=== PATIENT | male | born 1945 | race African-American/Black ===

== ENCOUNTER 2022-10-02 11:43 | Emergency (ER) | payer OTHER ==
[2022-10-02 11:56] VITALS: BP 153/86; PULSE 66; RESP 18; TEMP 98.1; BMI 28.7
[2022-10-02] MEDS ORDERED: LIDOCAINE 5% TOPICAL PATCH ONE (13:27)
[2022-10-02] MEDS ORDERED: ACETAMINOPHEN 500 MG TABLET (FP) ONE (13:27)
[2022-10-02] MEDS ORDERED: ACETAMINOPHEN 500 MG TABLET (FP) PO ONE (13:30)
[2022-10-02] MEDS ORDERED: LIDOCAINE 5% TOPICAL PATCH TP ONE (13:30)
[2022-10-02] MEDS ORDERED: LIDOCAINE PATCH REMOVAL MC SCH (22:00)
== END 2022-10-02 15:21 | disposition home or self-care (01) ==
LOC: JERFT 11:43
DX: M54.50 Low back pain, unspecified (principal); M79.604 Pain in right leg; M79.605 Pain in left leg; M16.11 Unilateral primary osteoarthritis, right hip; G47.00 Insomnia, unspecified
CPT/HCPCS: 72100-TC-FY; 72170-TC-FY; 99283-25

== ENCOUNTER 2022-10-17 05:11 | Day surgery (SDC) | payer OTHER ==
[2022-10-15 10:54] VITALS: BMI 28.7
[2022-10-17] MEDS ORDERED: BUPIVACAINE HCL/PF 0.5% (5MG/ML) 10 ML VIAL ONE (07:13)
[2022-10-17] MEDS ORDERED: LIDOCAINE HCL 1% PRESERVATIVE FREE - 30ML VIAL IJ ONE (11:22)
[2022-10-17] MEDS ORDERED: BUPIVACAINE HCL/PF 0.75% 10 ML VIAL NR ONE (11:23)
[2022-10-17 12:03] VITALS: BP 140/81; PULSE 70; RESP 16; TEMP 97.2
[2022-10-17] MEDS ORDERED: ACETAMINOPHEN 500 MG TABLET (FP) PO PRN (13:32)
== END 2022-10-17 14:52 | disposition home or self-care (01) ==
LOC: JASU-SURG 05:11
PROVIDERS: ATTEND Pain Medicine Pain Medicine
PROC: 3E0T3BZ Introduction of Anesthetic Agent into Peripheral Nerves and Plexi, Percutaneous Approach (ICD-10-PCS; principal; 2022-10-17 11:45)
DX: M47.816 Spondylosis without myelopathy or radiculopathy, lumbar region (principal)
CPT/HCPCS: 76000-TC-FY

== ENCOUNTER 2022-11-11 04:00 | Day surgery (SDC) | payer OTHER ==
[2022-11-10 11:41] VITALS: BMI 28.7
[2022-11-11] MEDS ORDERED: DEXAMETHASONE SOD PHOSPHATE 10 MG/1 ML VIAL ONE (07:25)
[2022-11-11] MEDS ORDERED: LIDOCAINE HCL/PF 1% SDV 5ML VIAL ONE (07:25)
[2022-11-11 10:43] VITALS: RESP 18
[2022-11-11] MEDS ORDERED: IOHEXOL 180 MG/1 ML ML IJ ONE (12:10)
[2022-11-11] MEDS ORDERED: DEXAMETHASONE SOD PHOSPHATE 10 MG/1 ML VIAL IVPUSH ONE (12:10)
[2022-11-11] MEDS ORDERED: LIDOCAINE HCL 1% PRESERVATIVE FREE - 30ML VIAL IJ ONE (12:10)
[2022-11-11 12:47] VITALS: PULSE 64
[2022-11-11] MEDS ORDERED: ACETAMINOPHEN 500 MG TABLET (FP) PO PRN (13:04)
[2022-11-11 13:41] VITALS: BP 136/74; TEMP 97.8
== END 2022-11-11 13:30 | disposition home or self-care (01) ==
LOC: JASU-SURG 04:00
PROVIDERS: ATTEND Pain Medicine Pain Medicine
PROC: 3E0R3BZ Introduction of Anesthetic Agent into Spinal Canal, Percutaneous Approach (ICD-10-PCS; 2022-11-11)
PROC: 3E0R33Z Introduction of Anti-inflammatory into Spinal Canal, Percutaneous Approach (ICD-10-PCS; principal; 2022-11-11 12:00)
DX: M48.061 Spinal stenosis, lumbar region without neurogenic claudication (principal); M54.16 Radiculopathy, lumbar region
CPT/HCPCS: 76000-TC-FY; J1100